=== PATIENT | female | born 1940 | race Caucasian/White ===

== ENCOUNTER → 2018-04-04 10:21 | Outpatient (CLI) | payer MEDICARE, BC, OTHER | END | disposition home or self-care (01) | LOC: D.CT 10:00 | DX: R91.1 Solitary pulmonary nodule (principal) ==

== ENCOUNTER → 2018-07-02 13:38 | Outpatient (CLI) | payer MEDICARE, BC, OTHER | END | disposition home or self-care (01) | LOC: D.LABREF 13:38 | DX: M16.12 Unilateral primary osteoarthritis, left hip (principal); Z11.8 Encounter for screening for other infectious and parasitic diseases ==

== ENCOUNTER 2018-08-01 10:00 | Inpatient (IN) | payer MEDICARE, OTHER ==
[~2018-08-01] VITALS: Ht 157.5 cm; Wt 68.9 kg
[~2018-08-01 10:00] MED LIST: ARMOUR THYROID90 MG PO; LUMIGAN 0.01%2.5 ML EACH EYE
[2018-08-01 11:58] LABS: BASOPHILS 0.5 % (0-2); EOSINOPHILS 1.7 % (0-7); HEMOGLOBIN 15.1 g/dL (12-16); IMMATURE GRANULOCYTES 0.3 % (0-5); LYMPHOCYTES 23.9 % (15-50); MCH 30.7 pg (26.0-34.0); MCHC 33.6 g/dL (31.0-37.0); MCV 91.5 fL (80.0-100.0); MEAN PLATELET VOLUME 10.7 fL (7.4-10.4); MONOCYTES 8.4 % (2-11); NEUTROPHILS 65.2 % (40-80); PLATELET COUNT 254 10x3/uL (130-400); RBC 4.92 10x6/uL (4.00-5.40); RDW 12.8 % (11.5-14.5); WBC 9.5 10x3/uL (4.8-10.8)
[2018-08-01 12:08] LABS: ANION GAP 13.1 mmol/L (8-16); APTT 28.2 SECONDS (22.8-39.4); CALCIUM 9.5 mg/dL (8.5-10.1); CARBON DIOXIDE 29.8 mmol/L (21.0-32.0); CREATININE - SERUM 0.9 mg/dL (0.6-1.3); POTASSIUM - SERUM 3.9 mmol/L (3.5-5.1)
[2018-08-01 12:13] LABS: INR 0.99 (0.85-1.17); PROTIME 12.6 SECONDS (11.6-15.0)
[2018-08-01 14:00] LABS: APPEARANCE HAZY (CLEAR)
[2018-08-01 14:01] LABS: BILIRUBIN NEGATIVE (NEGATIVE); COLOR YELLOW (YELLOW); GLUCOSE NEGATIVE (NEGATIVE); KETONE NEGATIVE (NEGATIVE); NITRITE NEGATIVE (NEGATIVE); PROTEIN NEGATIVE (NEGATIVE); SPECIFIC GRAVITY 1.015 (1.005-1.020); UROBILINOGEN NORMAL (NORMAL)
[2018-08-01 14:02] LABS: BACTERIA FEW /hpf (NONE SEEN); CALCIUM OXALATE CRYSTALS 25-50 /hpf (NONE SEEN); EPITHELIAL CELLS OCC /hpf (0-5); MUCUS <1+ /lpf (NONE SEEN); RED CELLS - URINE OCC /hpf (0-5)
[2018-08-07 13:00] VITALS: BP 139/78
[2018-08-07 21:33] VITALS: BP 127/58
[2018-08-07 23:17] VITALS: BMI 27.8
[2018-08-08 01:47] VITALS: BP 116/69
--- NOTE | 2018-08-08 02:26 | NUR ---
ASSESSMENT PER ADMIT PACKET. DRESSING TO LEFT HIP C/D/I. PPP+. SR UP X2 CALL LIGHT WITHIN REACH.
[2018-08-08 06:00] VITALS: BP 120/62
[2018-08-08 06:17] VITALS: BP 130/79
[2018-08-08 06:32] LABS: HEMATOCRIT 37.8 % (36.0-48.0); HEMOGLOBIN 12.3 g/dL (12-16); MCH 30.1 pg (26.0-34.0); MCHC 32.5 g/dL (31.0-37.0); MCV 92.4 fL (80.0-100.0); MEAN PLATELET VOLUME 10.7 fL (7.4-10.4); RBC 4.09 10x6/uL (4.00-5.40); RDW 13.2 % (11.5-14.5)
--- NOTE | 2018-08-08 08:30 | NUR ---
PT RESTING IN BED. NO S/S OF ACUTE DISTRESS. CL IN PLACE.
[2018-08-08 09:13] VITALS: BP 116/52
[2018-08-08 11:21] LABS: BASOPHILS 0.1 % (0-2); EOSINOPHILS 0.3 % (0-7); HEMATOCRIT 36.9 % (36.0-48.0); IMMATURE GRANULOCYTES 0.3 % (0-5); LYMPHOCYTES 9.5 % (15-50); MCHC 32.5 g/dL (31.0-37.0); MCV 92.3 fL (80.0-100.0); MEAN PLATELET VOLUME 10.8 fL (7.4-10.4); MONOCYTES 10.1 % (2-11); NEUTROPHILS 79.7 % (40-80); PLATELET COUNT 211 10x3/uL (130-400); RDW 13.1 % (11.5-14.5); WBC 14.4 10x3/uL (4.8-10.8)
[2018-08-08 11:41] LABS: ALBUMIN 3.3 g/dL (3.4-5.0); ANION GAP 13.8 mmol/L (8-16); BILIRUBIN - TOTAL 0.55 mg/dL (0.2-1.3); CALCIUM 8.5 mg/dL (8.5-10.1); CARBON DIOXIDE 27.6 mmol/L (21.0-32.0); POTASSIUM - SERUM 4.4 mmol/L (3.5-5.1); PROTEIN - SERUM 5.7 g/dL (6.4-8.2)
[2018-08-08 12:37] VITALS: Ht 157.5 cm; Wt 68.9 kg
--- NOTE | 2018-08-08 16:32 | OP ---
PATIENT NAME: FRANCIS ABREU MEDICAL RECORD: [id number] :44 LOCATION:[id number] ADMISSION DATE:08/07/18 SURGEON: TAB SALAZAR DO DATE OF OPERATION: 08/07/2018 PROCEDURE PERFORMED: Left total hip arthroplasty. PREOPERATIVE DIAGNOSIS: Left hip osteoarthritis. POSTOPERATIVE DIAGNOSIS: Left hip osteoarthritis. INDICATIONS: Ms. Abreu is a 78-year-old female that presented to my office having x-rays of her primary care and noting severe left hip arthritis including cyst in the acetabulum and in the femoral head. She has had pain for quite some time, but did not know what it was from, into the groin and very little movement. She was talked about the risks and benefits of the procedure including infection, bleeding, damage to nerves and vessels, need for further surgery and fracture. She was okay with those risks and decided to undergo total hip. Once the consent was signed, she is also aware of the risk of and blood clots. SURGEON: Tab Salazar DO OPERATIVE PROCEDURE: The patient received a block by anesthesia in the preoperative area, taken to the operative suite, laid in supine position, given general anesthetic. She was intubated and sedated and moved over to the [place] table and positioned. The left hip was prepped and draped in sterile fashion. She was given 80 mg of gentamicin, 2 grams Ancef preoperatively. Incision was then marked out after timeout was performed. Everyone was in agreement with the correct side, site, patient and procedure. Incision then began over the tensor fasciae latae muscle. Careful dissection was made down to the tensor fascia serafin and the fascia was incised and taken anterior to the muscle belly posteriorly and the interval between the rectus was developed. The fascia was removed and the rectus was taken medially and the tensor fascia serafin laterally. The ascending branch of the lateral femoral circumflex was then encountered and tied off and coagulated with the Aquamantys and then cut. The capsule was then exposed. Hohmann was placed around it and a capsulotomy was performed and tagged. The Hohmanns were then placed inside around the neck. The neck was then cut and the head was removed. The trial was then brought in and placed and got nice view of the acetabulum. The labrum was removed and so was the pulvinar. Reaming then began under fluoroscopy down to the teardrop and the position of the cup from 44-48, a 48 fit well and a 48 cup was impacted into the pelvis. Once a 48 was entered in the pelvis, a liner was placed in and the femur was then exposed and a broaching began. At first, the canal finder was put in the Spiralcat cutter and then the broaching began with 4 up to an 8 and 8 was placed in the canal, fit very well, and then trialed a -6 and x-rays were taken. This fit very well. I had good equal length to the other side. This was then taken out and removed and the implant was put in. The dual mobility head was put on and the hip was reduced. X-rays were taken confirming good placement and good lengths. No fracture was seen in the femur. The wound was then thoroughly irrigated and Surgicel beads and vancomycin and tobramycin powder placed into the wound. The capsule was then closed with #1 Ethibond and then the tensor fascia serafin fascia was closed with a #1 Vicryl, first in a [id number], then running locking stitch that layer was then irrigated and the more tobramycin and vancomycin placed on that and 2-0 Vicryl inverted OPERATIVE REPORT [id number] FOSSUM,FRANCIS J interrupted on the skin and 4-0 Monocryl ran on the skin and Prineo glue on the skin for closure. After the glue had dried, a Telfa and Tegaderm was placed on the wound. The patient was awakened and taken to recovery in stable condition. Blood loss was approximately 200 mL. COMPLICATIONS: None. TRANSINT:[id number] Voice Confirmation ID: [id number] DOCUMENT ID: [id number] TAB SALAZAR DO at 1632 CC: [id number] DICTATION DATE: 08/07/18 184 BULK STATION AGENT: 08/07/182225 [facility] IN [place] [id number] [place] [address]
[2018-08-08 17:52] VITALS: BP 131/51
--- NOTE | 2018-08-08 20:00 | NUR ---
ASSISTED UP TO BEDSIDE COMODE TOLERATED WELL USING WALKER, CALL LIGHT IN REACH ICE PACK APPLIED TO LEFT UPPER THIGH INCISION
[2018-08-08 22:24] VITALS: BP 141/58
[2018-08-09 05:00] LABS: BASOPHILS 0.2 % (0-2); EOSINOPHILS 0.4 % (0-7); HEMATOCRIT 34.3 % (36.0-48.0); HEMOGLOBIN 11.4 g/dL (12-16); IMMATURE GRANULOCYTES 0.3 % (0-5); LYMPHOCYTES 9.5 % (15-50); MCH 30.1 pg (26.0-34.0); MCHC 33.2 g/dL (31.0-37.0); MCV 90.5 fL (80.0-100.0); MEAN PLATELET VOLUME 10.8 fL (7.4-10.4); MONOCYTES 10.9 % (2-11); NEUTROPHILS 78.7 % (40-80); PLATELET COUNT 181 10x3/uL (130-400); RBC 3.79 10x6/uL (4.00-5.40); RDW 13.2 % (11.5-14.5); WBC 12.8 10x3/uL (4.8-10.8)
[2018-08-09 05:36] LABS: ALBUMIN 3.1 g/dL (3.4-5.0); BILIRUBIN - TOTAL 0.62 mg/dL (0.2-1.3); CALCIUM 8.5 mg/dL (8.5-10.1); CARBON DIOXIDE 25.8 mmol/L (21.0-32.0); CREATININE - SERUM 0.8 mg/dL (0.6-1.3); PROTEIN - SERUM 6.1 g/dL (6.4-8.2)
[2018-08-09 05:43] LABS: ANION GAP 14.6 mmol/L (8-16); POTASSIUM - SERUM 3.4 mmol/L (3.5-5.1)
[2018-08-09 05:49] VITALS: BP 138/56
[2018-08-09 08:30] VITALS: BP 121/96
[2018-08-09 08:44] VITALS: BP 138/64
--- NOTE | 2018-08-09 09:20 | NUR ---
PT RESTING QUIETLY IN BED. NO ACUTE DISTRESS NOTED. SALINE LOC TO RIGHT FOREARM AND RIGHT FOREARM, SITES WITHOUT REDNESS OR EDEMA, BOTH FLUSH EASILY. DENIES PAIN AT THIS TIME. DRESSING C/D/I TO LEFT HIP. SCD'S ON BILATERALLY. DENIES FURTHER NEEDS AT THIS TIME. CL WITHIN REACH. ENCOURAGED TO CALL WITH NEEDS. CONTINUE POC
[2018-08-09 11:18] LABS: APPEARANCE CLEAR (CLEAR); COLOR YELLOW (YELLOW); GLUCOSE NEGATIVE (NEGATIVE); KETONE SMALL mg/dL (NEGATIVE); NITRITE NEGATIVE (NEGATIVE); PROTEIN NEGATIVE (NEGATIVE); SPECIFIC GRAVITY 1.015 (1.005-1.020)
[2018-08-09 11:19] LABS: BILIRUBIN NEGATIVE (NEGATIVE); UROBILINOGEN NORMAL (NORMAL)
[2018-08-09 11:25] LABS: AMORPHOUS SEDIMENT >1+ /lpf (NONE SEEN); BACTERIA FEW /hpf (NONE SEEN); EPITHELIAL CELLS RARE /hpf (0-5); RED CELLS - URINE RARE /hpf (0-5); WHITE CELLS - URINE RARE /hpf (0-5)
--- NOTE | 2018-08-09 11:30 | NUR ---
PT ASSISTED TO BSC USING WALKER AND PARTIAL ASSIST DUE TO NON WEIGHT BEARING TO LEFT LOWER EXTREMITY. PT HARRY WELL. ASSISTED BACK TO BED, ASSISTING BACK TO BED. CL WITHIN REACH. ENCOURAGED TO CALL WITH FURTHER NEEDS.
[2018-08-09 11:45] VITALS: BP 105/41
--- NOTE | 2018-08-09 13:45 | NUR ---
PT RESTING IN BED WITH EYES CLOSED. NO ACUTE DISTRESS NOTED. CL WITHIN REACH.
--- NOTE | 2018-08-09 14:21 | MORECARE ---
CASE MANAGEMENT DISCHARGE SUMMARY PATIENT: FRANCIS ABREU UNIT: [id number] ADM DATE: 08/07/18 AGE: 78 : 42 SEX: F ROOM/BED: D.2210 AUTHOR: BRENNONDOC PHYSICIAN: REFERRING PHYSICIAN: TAB SALAZAR DO DATE OF SERVICE: 08/09/18 Discharge Plan Patient Name: FRANCIS ABREU Facility: [facility]:[place] : 1940 Planned Disposition: Inpatient Rehab Anticipated Discharge Date: Discharge Date: Expected LOS: Initial Reviewer: [id number] Initial Review Date: 08/07/2018 Generated: 08/09/18 3:21 pm Comments DCP- Discharge Planning Updated by [email or web address]: Nia Carlos on 08/09/18 1:[address] Patient Name: FRANCIS ABREU Admission Status: Urgent Accout number: [id number] Admission Date: 08-07-2018 : 1940 Admission Diagnosis: Attending: TAB SALAZAR Current LOS: 2 Anticipated DC Date: Planned Disposition: Inpatient Rehab Primary Insurance: [employer] MEDICARE PPO or HMO Discharge Planning Comments: CM met with patient to assess discharge planning needs. Patient lives home alone where she is independent with her care. She stated that he son was flying into town today from [place] and will stay a week, but then he will go back to his home. Patient stated that she does not feel like she can go home in the state that she is in and would like to go to our inpatient rehab. She will need preauth. She does not have any DME at home. So at DC she will need a walker and BSC. CM will continue to follow and assist with DC planning Bindery Machine Setter/Set Up Operator: Nia Carlos DCPIA - Discharge Planning Initial Assessment Updated by [email or web address]: Nia Carlos on 08/09/18 2:10 pm * Is the patient Alert and Oriented? Yes * How many steps to enter\exit or inside your home? * PCP JAMES * Pharmacy [facility] [address] * Preadmission Environment Home Alone * ADLs Independent * List name and contact numbers for known caregivers / representatives who currently or will assist patient after discharge: ROSHNI (SON) [phone] * Verbal permission to speak to the caregivers and representatives has been obtained from the patient. N/A * Community resources currently utilized None * Additional services required to return to the preadmission environment? Yes * Can the patient safely return to the preadmission environment? No * Has this patient been hospitalized within the prior 30 days at any hospital? No Patient Name: FRANCIS ABREU Page [phone] at 1421 All edits/amendments must be made on the electronic document DICTATION DATE: 08/09/18 142 POLICE LIEUTENANT PATROL: EVARISTO 08/09/18 1421 RPT#: [id number] DC DATE: STATUS: ADM IN [facility] [address] [place] [address] END OF REPORT
[2018-08-09 16:04] VITALS: BP 135/48
--- NOTE | 2018-08-09 19:45 | NUR ---
PT LYING IN BED, NO SIGNS OF DISTRESS. ALERT AND ORIENTED. IV TO RIGHT FA SL AND LEFT FA SL. ASSISTED PT W/ WALKER UP TO BEDSIDE COMMODE AND BACK TO BED. DRESSING TO LEFT HIP CDI. PLACED ICE PACK ON LEFT HIP. PT STATES PAIN 02/09. GACE NORCO ORDERED. SCDS IN PLACE AND ON TO BOTH LEGS. PT STATES NO OTHER NEEDS OR COMPLAINTS AT THIS TIME. BED LOWEST POSITION, SRX2, CL IN REACH
[2018-08-09 23:16] VITALS: BP 121/96
--- NOTE | 2018-08-10 02:40 | NUR ---
ASSISTED PT UP TO BEDSIDE COMMODE AND BACK TO BED W/ MODERATE ASSIST. PT STATES PAIN IN LEFT HIP AND BACK 5/10. GAVE NORCO ORDERED. PROVIDED PT W/ WATER UPON REQUEST. NO OTHER NEEDS OR COMPLAINTS AT THIS TIME. SCDS ON. CL IN REACH, WILL CONTINUE TO MONITOR
[2018-08-10 03:38] VITALS: BP 100/67; BP 137/73
[2018-08-10 06:19] LABS: BASOPHILS 0.2 % (0-2); EOSINOPHILS 1.2 % (0-7); HEMATOCRIT 33.4 % (36.0-48.0); HEMOGLOBIN 10.9 g/dL (12-16); IMMATURE GRANULOCYTES 0.3 % (0-5); LYMPHOCYTES 10.8 % (15-50); MCH 29.9 pg (26.0-34.0); MCHC 32.6 g/dL (31.0-37.0); MCV 91.8 fL (80.0-100.0); MEAN PLATELET VOLUME 10.8 fL (7.4-10.4); MONOCYTES 11.2 % (2-11); NEUTROPHILS 76.3 % (40-80); PLATELET COUNT 198 10x3/uL (130-400); RBC 3.64 10x6/uL (4.00-5.40); RDW 13.2 % (11.5-14.5); WBC 13.1 10x3/uL (4.8-10.8)
[2018-08-10 06:47] LABS: ALBUMIN 2.8 g/dL (3.4-5.0); ANION GAP 11.5 mmol/L (8-16); BILIRUBIN - TOTAL 0.56 mg/dL (0.2-1.3); CALCIUM 8.5 mg/dL (8.5-10.1); CARBON DIOXIDE 28.4 mmol/L (21.0-32.0); CREATININE - SERUM 0.8 mg/dL (0.6-1.3); POTASSIUM - SERUM 3.9 mmol/L (3.5-5.1); PROTEIN - SERUM 5.5 g/dL (6.4-8.2)
--- NOTE | 2018-08-10 07:15 | NUR ---
PT RESTING IN BED. REPORTS PAIN 8/10 AT THIS TIME. TO ADMINISTER PAIN MEDS PRESCRIBED. SALINE LOCS TO LEFT AND RIGHT FOREARMS, SITES WITHOUT REDNESS OR EDEMA. DRESSING C/D/I TO LEFT HIP. DENIES FUTHER NEEDS AT THIS TIME. CL WITHIN REACH. ENCOURAGED TO CALL WITH NEEDS. CONTINUE POC
[2018-08-10 08:34] VITALS: BP 100/61
[2018-08-10 11:40] VITALS: BP 112/55
--- NOTE | 2018-08-10 12:12 | NUR ---
NUTRITION F/U PT TOLERATING REG GLUTEN FREE DIET, 100% INTAKE BREAKFAST. WILL CONTINUE TO PROVIDE DIET, HONOR FOOD PREFERENCES. RD FOLLOWING
--- NOTE | 2018-08-10 12:45 | NUR ---
Rehab Note- Acute Inpatient Prescreen order received. The patient has [employer] insurance and will require a PreAuth. Benefits were verified with Pradeep with [employer] and PreAuth was stared with Roya with [employer], Ref #[id number]. Will await to be contacted for clinical information. WIll follow at this time. Thank you for this referral! Keyana Seo RN Clinical Liaison, [facility] Rehab
[2018-08-10 16:00] VITALS: BP 106/58
--- NOTE | 2018-08-10 16:45 | NUR ---
REHAB NOTE- RECEIVED A FA REQUESTING CLINICALS TO BE FAXD- FAXED AT THIS TIME TO ISAURA WITH [employer]. WILL FOLLOW A THIS TIME. THANK YOU FOR THIS REFERRAL! IGNACIA HASSAN RN CLINICAL LIAISON, [facility] RE[facility]
[2018-08-10 19:34] VITALS: BP 106/49
--- NOTE | 2018-08-10 20:57 | NUR ---
PT VOIDED ON BEDSIDE COMMODE WITH MODERATE ASSIST AND WALKER. GAVE SCHEDULED MEDS. GAVE NORCO-10 FOR PAIN 02/09. COMPLETE ASSESSMENT PER FLOW-SHEET. NO OTHER NEEDS. WILL CONTINUE TO MONITOR.
[2018-08-10 23:35] VITALS: BP 113/56
[2018-08-11 04:00] VITALS: BP 125/59
[2018-08-11 06:12] LABS: BASOPHILS 0.3 % (0-2); HEMATOCRIT 33.1 % (36.0-48.0); HEMOGLOBIN 10.9 g/dL (12-16); IMMATURE GRANULOCYTES 0.4 % (0-5); LYMPHOCYTES 12.5 % (15-50); MCHC 32.9 g/dL (31.0-37.0); MCV 91.2 fL (80.0-100.0); MEAN PLATELET VOLUME 10.4 fL (7.4-10.4); MONOCYTES 11.4 % (2-11); NEUTROPHILS 73.4 % (40-80); PLATELET COUNT 211 10x3/uL (130-400); RBC 3.63 10x6/uL (4.00-5.40); RDW 13.1 % (11.5-14.5); WBC 11.4 10x3/uL (4.8-10.8)
[2018-08-11 06:42] LABS: ALBUMIN 2.5 g/dL (3.4-5.0); ALKALINE PHOSPHATASE 67 U/L (46-116); ALT (SGPT) 24 U/L (10-68); BILIRUBIN - TOTAL 0.34 mg/dL (0.2-1.3); CALC OSMOLALITY 278 mosm/kg (275-300); CALCIUM 8.7 mg/dL (8.5-10.1); CARBON DIOXIDE 26.4 mmol/L (21.0-32.0); CHLORIDE - SERUM 102 mmol/L (98-107); CREATININE - SERUM 0.7 mg/dL (0.6-1.3); GLUCOSE 137 mg/dL (74-106); POTASSIUM - SERUM 3.6 mmol/L (3.5-5.1); SODIUM 139 mmol/L (136-145); UREA NITROGEN 11 mg/dL (7-18); eGFR NON AFRICAN AMERICAN 86 mL/min (90-120)
[2018-08-11 08:39] VITALS: BP 137/61
--- NOTE | 2018-08-11 10:26 | NUR ---
IV DCD DUE TO UNABLE TO FLUSH, PATIENT REQUEST NOT TO HAVE IV RESTARTED DUE TO GOING TO REHAB
[2018-08-11 12:00] VITALS: BP 111/69
[2018-08-11 16:00] VITALS: BP 134/46
--- NOTE | 2018-08-11 18:44 | NUR ---
PATIENT RESTING WITH NO NEEDS VOICED, CL IN REACH
[2018-08-11 20:00] VITALS: BP 112/52
--- NOTE | 2018-08-11 20:15 | NUR ---
PT C/O LEFT HIP PAIN 02/09. GAVE NORCO-10 PO AND APPLIED ICE. GAVE SCHEDULED MEDS. COMPLETE ASSESSMENT PER FLOW-SHEET. PT'S SON AT BEDSIDE. NO OTHER NEEDS. WILL CONTINUE TO MONITOR.
[2018-08-12] VITALS: BP 129/62
[2018-08-12 04:00] VITALS: BP 135/67
[2018-08-12 05:55] LABS: BASOPHILS 0.3 % (0-2); EOSINOPHILS 3.4 % (0-7); HEMOGLOBIN 10.6 g/dL (12-16); IMMATURE GRANULOCYTES 0.5 % (0-5); LYMPHOCYTES 18.1 % (15-50); MCH 29.4 pg (26.0-34.0); MCHC 32.1 g/dL (31.0-37.0); MCV 91.4 fL (80.0-100.0); MEAN PLATELET VOLUME 10.1 fL (7.4-10.4); MONOCYTES 12.9 % (2-11); NEUTROPHILS 64.8 % (40-80); RBC 3.61 10x6/uL (4.00-5.40); RDW 13.1 % (11.5-14.5); WBC 8.9 10x3/uL (4.8-10.8)
[2018-08-12 06:05] LABS: PLATELET COUNT 268 10x3/uL (130-400)
[2018-08-12 06:35] LABS: ALBUMIN 2.3 g/dL (3.4-5.0); ANION GAP 13.4 mmol/L (8-16); BILIRUBIN - TOTAL 0.37 mg/dL (0.2-1.3); CALCIUM 8.6 mg/dL (8.5-10.1); CARBON DIOXIDE 29.2 mmol/L (21.0-32.0); CREATININE - SERUM 0.8 mg/dL (0.6-1.3); POTASSIUM - SERUM 3.6 mmol/L (3.5-5.1)
--- NOTE | 2018-08-12 07:30 | NUR ---
PATIENT POST OP DAY 5 FOLLOWING LEFT HIP REPLACEMENT. DRESSING C/D/I, PATIENT REPORT, EXPLAINED TO PATIENT THAT IT IS TOO SOON TO GIVE PAIN MEDICAIONS AND SHE VOICED UNDERSTANDING STATING PAIN IS TOLERABLE AT THIS TIME. SCD'S INTACT. IV RIGHT HAND WITH NS @5 TKO. CL IN REACH
[2018-08-12 07:55] VITALS: BP 142/54
--- NOTE | 2018-08-12 11:37 | NUR ---
PATIENT RESTING IN BED VISITING WITH SON, NO NEEDS VOICED. CL IN REACH
[2018-08-12 13:00] VITALS: BP 122/68
--- NOTE | 2018-08-12 14:05 | NUR ---
ISLAND DRESSING CHANGED TO LEFT HIP, SURGICAL INCISION WITH NO SIGNS OR SYMPTOMS OF INFECTION
[2018-08-12 16:00] VITALS: BP 133/67
--- NOTE | 2018-08-12 16:12 | NUR ---
MEDIUM BM WITH LOOSE AND FORMED STOOL FOLLOWING FLEETS ENEMA
[2018-08-12 20:00] VITALS: BP 120/61
--- NOTE | 2018-08-12 21:30 | NUR ---
PT ALERT & ORIENTED, SITTING UP IN BED WATCHING TV. GAVE SCHEDULED MEDS. ASSISTED PT UP TO BEDSIDE COMMODE WITH WALKER TO VOID. NO OTHER NEEDS. ASSESSMENT COMPLETE PER FLOW-SHEET. WILL CONTINUE TO MONITOR.
[2018-08-13] VITALS: BP 116/65
[2018-08-13 04:00] VITALS: BP 112/57
[2018-08-13 04:08] LABS: BASOPHILS 0.6 % (0-2); EOSINOPHILS 3.9 % (0-7); HEMATOCRIT 31.4 % (36.0-48.0); HEMOGLOBIN 10.2 g/dL (12-16); IMMATURE GRANULOCYTES 0.8 % (0-5); LYMPHOCYTES 19.7 % (15-50); MCH 29.5 pg (26.0-34.0); MCHC 32.5 g/dL (31.0-37.0); MCV 90.8 fL (80.0-100.0); MEAN PLATELET VOLUME 9.5 fL (7.4-10.4); MONOCYTES 11.5 % (2-11); NEUTROPHILS 63.5 % (40-80); PLATELET COUNT 282 10x3/uL (130-400); RBC 3.46 10x6/uL (4.00-5.40); WBC 8.7 10x3/uL (4.8-10.8)
[2018-08-13 04:39] LABS: ALBUMIN 2.4 g/dL (3.4-5.0); ANION GAP 14.4 mmol/L (8-16); BILIRUBIN - TOTAL 0.38 mg/dL (0.2-1.3); CALCIUM 8.8 mg/dL (8.5-10.1); CARBON DIOXIDE 27.5 mmol/L (21.0-32.0); CREATININE - SERUM 0.9 mg/dL (0.6-1.3); POTASSIUM - SERUM 3.9 mmol/L (3.5-5.1); PROTEIN - SERUM 6.1 g/dL (6.4-8.2)
[2018-08-13] MEDS ORDERED: ELIQUIS2.5 MG PO (07:26)
[2018-08-13] MEDS ORDERED: HYDROCODON-ACE1 EAC7 PO (07:26)
[2018-08-13] MEDS ORDERED: KEFLEX500 MG PO (07:27)
[2018-08-13 08:04] VITALS: BP 146/59
--- NOTE | 2018-08-13 10:01 | NUR ---
Rehab Note- Called & left voicemail for Fanta Clinical Review nurse with [employer]. WIll await determination for acute inpatiemt rehab stay. Keyana Seo RN Clinical Liaison, [facility] Rehab
[2018-08-13 11:55] VITALS: BP 140/64
--- NOTE | 2018-08-13 13:58 | NUR ---
Rehab Note- Voicemail left again for Fanta with [employer] for pending Auth. COntinue to follow at this time. Keyana Seo RN Clinical Liaison, [facility] Rehab
--- NOTE | 2018-08-13 15:35 | NUR ---
Rehab Note- Just spoke with Fanta from [facility] requesting more therapy information prior to being sent to their medical device sales for review. Spoke w/ Yuri with therapy to see if a MINER will be seeing the patient this evening to get an updated note at this time. WIll continue to follow and will fax requested information when available. Spoke with VINCE Hsu to inform her. Thank you for this referral! Keyana Seo RN Clinical Liaison, [facility] Rehab
[2018-08-13 15:45] VITALS: BP 147/64
--- NOTE | 2018-08-13 16:50 | NUR ---
OT NOTE: PT COMPLETED BED MOB FOR SUPINE TO SIT WITH MOD/MAX A. PT COMPLETED BED TO BSC TRANSFER WITH CGA AND RW. PT COMPLETED TOILET HYGIENE WITH SET UP. PT IS FEARFUL AND REQUIRED V/CS FOR TASK PROGRESSION. THANK YOU, KRISTOFER LOPEZ
[2018-08-13 20:00] VITALS: BP 123/54
--- NOTE | 2018-08-13 21:15 | NUR ---
ENTERED ROOM IN RESPONSE TO CALL LIGHT. PT ON BEDSIDE COMMODE, STANDBY ASSIST WHILE PT USES WALKER TO SIT BACK ON BED. HELPED RAISE LEGS ONTO BED. PT DENIES FURTHER NEEDS. WILL CONTINUE TO MONITOR.
--- NOTE | 2018-08-14 03:56 | NUR ---
RESTING QUITELY IN BED NO APPARENT DISTRESS, CALL LIGHT IN REACH
[2018-08-14 04:00] VITALS: BP 134/110
--- NOTE | 2018-08-14 07:00 | NUR ---
PT ASSISTED FROM BED TO BSC AND BACK TO BED. HARRY WELL. NO ACUTE DISTRESS NOTED. DRESSING C/D/I TO LEFT HIP. DENIES FURTHER NEEDS AT THIS TIME. CL WITHIN REACH. ENCOURAGED TO CALL WITH NEEDS. CONTINUE POC
--- NOTE | 2018-08-14 09:00 | NUR ---
ASSISTED PT TO BSC AND BACK TO BED WITH MINIMAL ASSIST WITH WALKER. PT HARRY WELL. DENIES FURTHER NEEDS AT THIS TIME. CL WITHIN REACH.
[2018-08-14 09:15] VITALS: BP 124/56
--- NOTE | 2018-08-14 11:00 | NUR ---
PT ASSISTED FROM BED TO BSC AND BACK TO BED. HARRY WELL. NO ACUTE DISTRESS NOTED. DENIES FURTHER NEEDS. CL WITHIN REACH. CONTINUE TO MONITOR.
--- NOTE | 2018-08-14 13:10 | NUR ---
PT RESTING QUIETLY IN BED. NO ACUTE DISTRESS NOTED. DENIES NEEDS AT THIS TIME. CL WITHIN REACH. ENCOURAGED TO CALL WITH NEEDS. WILL CONTINUE TO MONITOR.
[2018-08-14 13:37] VITALS: BP 129/50
--- NOTE | 2018-08-14 14:34 | NUR ---
Rehab Note- Received call from Pradeep Zavala with [facility]- [facility]. Rubi Mccabe denied the patient an inpatient acute rehab stay but will apporve a SNF stay. A peer to peer can be set up by calling [phone] by 1300 on Mon08/15/18, case ref #[id number]. Spoke with VINCE Pratt. Thank you for this referral! Keyana Seo RN CLinical Liaison, [facility] Rehab
--- NOTE | 2018-08-14 15:11 | MORECARE ---
CASE MANAGEMENT DISCHARGE SUMMARY PATIENT: FRANCIS ABREU UNIT: [id number] ADM DATE: 08/07/18 AGE: 78 : 42 SEX: F ROOM/BED: D.2210 AUTHOR: BRENNON,DOC PHYSICIAN: REFERRING PHYSICIAN: TAB SALAZAR DO DATE OF SERVICE: 08/14/18 Discharge Plan Patient Name: FRANCIS ABREU Facility: [facility]:[place] : 1940 Planned Disposition: Inpatient Rehab Anticipated Discharge Date: Discharge Date: Expected LOS: Initial Reviewer: [email or web address] Initial Review Date: 08/07/2018 Generated: 08/14/18 4:11 pm Comments DCP- Discharge Planning Updated by [id number]: Nia Carlos on 08/14/18 2:[address] RECEIVED A CALL FROM INPATIENT REHAB STATED THAT [facility] DENIED. I SPOKE WITH PATIENT AT LENGTH, EXPLAINED SKILLED OBI SIGNED FOR [facility] (1) AND [facility] (2). IMM EXPLAINED AND GIVEN. REFERRAL SENT TO [facility] SPOKE WITH ADAN. CM TO FOLLOW AND ASSIST WITH DC PLANNING DCP- Discharge Planning Updated by [email or web address]: Nia Carlos on 08/09/18 1:[address] Patient Name: FRANCIS ABREU Admission Status: Urgent Accout number: [id number] Admission Date: 08-07-2018 : 1940 Admission Diagnosis: Attending: TAB SALAZAR Current LOS: 2 Anticipated DC Date: Planned Disposition: Inpatient Rehab Primary Insurance: [employer] MEDICARE PPO or HMO Discharge Planning Comments: CM met with patient to assess discharge planning needs. Patient lives home alone where she is independent with her care. She stated that he son was flying into town today from [place] and will stay a week, but then he will go back to his home. Patient stated that she does not feel like she can go home in the state that she is in and would like to go to our inpatient rehab. She will need preauth. She does not have any DME at home. So at DC she will need a walker and BSC. CM will continue to follow and assist with DC planning Residential Service Technician: Nia Carlos DCPIA - Discharge Planning Initial Assessment Updated by [id number]: Nia Carlos on 08/09/18 2:10 pm * Is the patient Alert and Oriented? Yes * How many steps to enter\exit or inside your home? * PCP JAMES * Pharmacy [facility] [address] * Preadmission Environment Home Alone * ADLs Independent * List name and contact numbers for known caregivers / representatives who currently or will assist patient after discharge: ROSHNI (SON) [phone] * Verbal permission to speak to the caregivers and representatives has been obtained from the patient. N/A * Community resources currently utilized None * Additional services required to return to the preadmission environment? Yes * Can the patient safely return to the preadmission environment? No * Has this patient been hospitalized within the prior 30 days at any hospital? No External Providers External Provider: [facility] Next Contact Date: Service Request Date: Service Type: Resolution: Reviewer: Comments: Coverage Notice Reviewer: [email or web address] - Nia Carlos Notice Issued Date-Time: 08/14/2018 14:51 Notice Type: IM Discharge Notice Notice Delivered To: Patient Relationship to Patient: Cashier Associate Name: Delivery Method: HAND - Hand Delivered Carrie Days: Prior Verbal Notification: Recipient Understood Notice: Yes Recipient Signature: Yes Med Rec Note Co-signed by Attending: Coverage Notice Comment: Last DP export: 08/09/18 1:21 pm Patient Name: FRANCIS ABREU Page [id number] at 1511 All edits/amendments must be made on the electronic document DICTATION DATE: 08/14/181509 FORGE OPERATOR: EVARISTO 08/14/18 151 RPT#: [id number] DC DATE: STATUS: ADM IN [facility] [address] [place] [address] END OF REPORT
[2018-08-14 20:00] VITALS: BP 142/67
--- NOTE | 2018-08-14 21:35 | NUR ---
SUPINE IN BED, SON AT BEDSIDE. PT IS ALERT AND ORIENTED, BUT FREQUENTLY GETS DISTRACTED/SIDE-TRACKED AND JUMPS TO OTHER SUBJECTS DURING CONVERSATIONS OR WHILE EXPLAINING/TELLING A STORY. PT DID STATE THE TIME FOR HER NEXT PAIN PILL WAS WRITTEN ON THE BOARD BECAUSE SHE DOES NOT KNOW WHEN TO ASK. INFORMED PT WHEN PAIN MEDICATION IS WEARING OFF AND PAIN BEGINS INCREASING AGAIN, THAT IS WHEN TO ASK. REGARDLESS OF HOW SOON OR LATE IN REGARDS TO TIMING AND THIS WILL HELP TO BE SURE PAIN CAN BE ADEQUATELY CONTROLLED- IF NOT, IT MAY NEED REVIEW BY DR. PT VERBALIZED UNDERSTANDING AND STATED SHE WOULD LET ME KNOW WHEN SHE WAS IN PAIN.
--- NOTE | 2018-08-14 23:15 | NUR ---
PT LYING IN BED, NO SIGNS OF DISTRESS. ALERT AND ORIENTED. AGREE W/ AEMT ASSESSMENT. DENIES NEEDS. CL IN REACH
[2018-08-15] VITALS: BP 120/52
[2018-08-15 04:00] VITALS: BP 117/75
--- NOTE | 2018-08-15 09:10 | MORECARE ---
CASE MANAGEMENT DISCHARGE SUMMARY PATIENT: FRANCIS ABREU UNIT: [id number] ADM DATE: 08/07/18 AGE: 78 : 42 SEX: F ROOM/BED: D.2210 AUTHOR: BRENNON,DOC PHYSICIAN: REFERRING PHYSICIAN: TAB SALAZAR DO DATE OF SERVICE: 08/15/18 Discharge Plan Patient Name: FRANCIS ABREU Facility: [facility]:[place] : 1940 Planned Disposition: Inpatient Rehab Anticipated Discharge Date: Discharge Date: Expected LOS: Initial Reviewer: [email or web address] Initial Review Date: 08/07/2018 Generated: 08/15/18 10:10 am Comments DCP- Discharge Planning Updated by [email or web address]: Nia Carlos on 08/15/18 8:[address] SPOKE WITH ADAN AT [facility], [facility] ON [facility] DCP- Discharge Planning Updated by [email or web address]: Nia Carlos on 08/14/18 2:[address] RECEIVED A CALL FROM INPATIENT REHAB STATED THAT [facility] DENIED. I SPOKE WITH PATIENT AT LENGTH, EXPLAINED SKILLED OBI SIGNED FOR [facility] (1) AND [facility] (2). IMM EXPLAINED AND GIVEN. REFERRAL SENT TO [facility] SPOKE WITH ADAN. CM TO FOLLOW AND ASSIST WITH DC PLANNING DCP- Discharge Planning Updated by [email or web address]: Nia Carlos on 08/09/18 1:[address] Patient Name: FRANCIS ABREU Admission Status: Urgent Accout number: [id number] Admission Date: 08-07-2018 : 1940 Admission Diagnosis: Attending: TAB SALAZAR Current LOS: 2 Anticipated DC Date: Planned Disposition: Inpatient Rehab Primary Insurance: [employer] MEDICARE PPO or HMO Discharge Planning Comments: CM met with patient to assess discharge planning needs. Patient lives home alone where she is independent with her care. She stated that he son was flying into town today from [place] and will stay a week, but then he will go back to his home. Patient stated that she does not feel like she can go home in the state that she is in and would like to go to our inpatient rehab. She will need preauth. She does not have any DME at home. So at DC she will need a walker and BSC. CM will continue to follow and assist with DC planning Cement Sack Breaker: Nia Carlos DCPIA - Discharge Planning Initial Assessment Updated by [email or web address]: Nia Carlos on 08/09/18 2:10 pm * Is the patient Alert and Oriented? Yes * How many steps to enter\exit or inside your home? * PCP JAMES * Pharmacy [facility] [address] * Preadmission Environment Home Alone * ADLs Independent * List name and contact numbers for known caregivers / representatives who currently or will assist patient after discharge: ROSHNI (SON) [phone] * Verbal permission to speak to the caregivers and representatives has been obtained from the patient. N/A * Community resources currently utilized None * Additional services required to return to the preadmission environment? Yes * Can the patient safely return to the preadmission environment? No * Has this patient been hospitalized within the prior 30 days at any hospital? No Coverage Notice Reviewer: [id number] - Nia Carlos Notice Issued Date-Time: 08/14/2018 14:51 Notice Type: IM Discharge Notice Notice Delivered To: Patient Relationship to Patient: Elevator Installer Name: Delivery Method: HAND - Hand Delivered Carrie Days: Prior Verbal Notification: Recipient Understood Notice: Yes Recipient Signature: Yes Med Rec Note Co-signed by Attending: Coverage Notice Comment: Last DP export: 08/14/18 2:11 p Patient Name: FRANCIS ABREU Page [id number] at 0910 All edits/amendments must be made on the electronic document DICTATION DATE: 08/15/18908 FACE BOSS: EVARISTO 08/15/18908 RPT#: [id number] DC DATE: STATUS: ADM IN [facility] [address] [place] [address] END OF REPORT
--- NOTE | 2018-08-15 10:21 | NUR ---
NUTRITION F/U PT SLEEPING. 50% INTAKE BREAKFAST THIS AM. WILL CONTINUE TO PROVIDE DIET, HONOR FOOD PREFERENCES. RD FOLLOWING
[2018-08-15 10:25] VITALS: BP 119/65
--- NOTE | 2018-08-15 11:49 | NUR ---
OT NOTE: PT PERFORMED VERY WELL TODAY; MIN ASSIST WITH BED MOB INCLUDING ROLLING AND SUPINE TO SIT. TOLERATED SITTING UP ON EDGE OF BED X 10-12 MIN FOR EXS; MAX ASSIST TO TRANG SHOES; TRANSFERRED TO TOILET WITH WALKER AND MIN ASSIST; TOILET HYGIENE WITH SET UP; DONNING AND DOFFING GOWN AND ROBE WITH MIN ASSIST; AMB APPROX 85 FT WITH RW TO IMPROVE UE STRENGTH AND FUNCTIONAL ENDURANCE. SINK HYGIENE WITH USE OF WALKER AND CGA; BACK TO BED WITH MOD ASSIST..PT VERY FATIGUED AT THIS TIME. EDUCATION ON SCOOTING UP IN BED WITHOUT ASSIST, HOWEVER, DUE TO FATIGUE, PT WAS UNABLE TO PERFORM WITHOUT ASSIST. SUDHEER ROMAN, OTR/L
--- NOTE | 2018-08-15 15:13 | MORECARE ---
CASE MANAGEMENT DISCHARGE SUMMARY PATIENT: FRANCIS ABREU UNIT: [id number] ADM DATE: 08/07/18 AGE: 78 : 42 SEX: F ROOM/BED: D.2210 AUTHOR: BRENNON,DOC PHYSICIAN: REFERRING PHYSICIAN: TAB SALAZAR DO DATE OF SERVICE: 08/15/18 Discharge Plan Patient Name: FRANCIS ABREU Facility: [facility]:[place] : 1940 Planned Disposition: Inpatient Rehab Anticipated Discharge Date: Discharge Date: Expected LOS: Initial Reviewer: [email or web address] Initial Review Date: 08/07/2018 Generated: 08/15/18 4:12 pm Comments DCP- Discharge Planning Updated by [email or web address]: Nia Carlos on 08/15/18 2:[address] SPOKE WITH KEN FROM [facility] ([phone]) HE GAVE [place] APPROVAL NUMBER [id number] CALLED ADAN WITH [facility], AWAITING RADIOLOGY RESIDENT TIME DCP- Discharge Planning Updated by [email or web address]: Nia Carlos on 08/15/18 8:[address] SPOKE WITH ADAN AT [facility], WAITING ON AUTH DCP- Discharge Planning Updated by [email or web address]: Nia Carlos on 08/14/18 2:[address] RECEIVED A CALL FROM INPATIENT REHAB STATED THAT EWAS DENIED. I SPOKE WITH PATIENT AT LENGTH, EXPLAINED SKILLED OBI SIGNED FOR [facility] (1) AND [facility] (2). IMM EXPLAINED AND GIVEN. REFERRAL SENT TO [facility] SPOKE WITH ADAN. CM TO FOLLOW AND ASSIST WITH DC PLANNING DCP- Discharge Planning Updated by [email or web address]: Nia Carlos on 08/09/18 1:[address] Patient Name: FRANCIS ABREU Admission Status: Urgent Accout number: [id number] Admission Date: 08-07-2018 : 1940 Admission Diagnosis: Attending: TAB SALAZAR Current LOS: 2 Anticipated DC Date: Planned Disposition: Inpatient Rehab Primary Insurance: [employer] MEDICARE PPO or HMO Discharge Planning Comments: CM met with patient to assess discharge planning needs. Patient lives home alone where she is independent with her care. She stated that he son was flying into town today from [place] and will stay a week, but then he will go back to his home. Patient stated that she does not feel like she can go home in the state that she is in and would like to go to our inpatient rehab. She will need preauth. She does not have any DME at home. So at DC she will need a walker and BSC. CM will continue to follow and assist with DC planning Projection Printer: Nia Carlos DCPIA - Discharge Planning Initial Assessment Updated by [email or web address]: Nia Carlos on 08/09/18 2:10 pm * Is the patient Alert and Oriented? Yes * How many steps to enter\exit or inside your home? * PCP JAMES * Pharmacy [facility] [address] * Preadmission Environment Home Alone * ADLs Independent * List name and contact numbers for known caregivers / representatives who currently or will assist patient after discharge: ROSHNI (SON) [phone] * Verbal permission to speak to the caregivers and representatives has been obtained from the patient. N/A * Community resources currently utilized None * Additional services required to return to the preadmission environment? Yes * Can the patient safely return to the preadmission environment? No * Has this patient been hospitalized within the prior 30 days at any hospital? No Coverage Notice Reviewer: [id number] - Nia Carlos Notice Issued Date-Time: 08/14/2018 14:51 Notice Type: IM Discharge Notice Notice Delivered To: Patient Relationship to Patient: Web Publisher Name: Delivery Method: HAND - Hand Delivered Carrie Days: Prior Verbal Notification: Recipient Understood Notice: Yes Recipient Signature: Yes Med Rec Note Co-signed by Attending: Coverage Notice Comment: Last DP export: 08/15/18 8:10 a Patient Name: FRANCIS ABREU Page [id number] at 1513 All edits/amendments must be made on the electronic document DICTATION DATE: 08/15/181511 INSULATION ENGINEMAN: EVARISTO 08/15/181511 RPT#: [id number] DC DATE: STATUS: ADM IN [facility] [address] [place] [address] END OF REPORT
--- NOTE | 2018-08-15 15:55 | MORECARE ---
CASE MANAGEMENT DISCHARGE SUMMARY PATIENT: FRANCIS ABREU UNIT: [id number] ADM DATE: 08/07/18 AGE: 78 : 42 SEX: F ROOM/BED: D.2210 AUTHOR: SOCORRO WILLETT PHYSICIAN: REFERRING PHYSICIAN: TAB SALAZAR DO DATE OF SERVICE: 08/15/18 Discharge Plan Patient Name: FRANCIS ABREU Facility: [facility]:[place] : 1940 Planned Disposition: Inpatient Rehab Anticipated Discharge Date: Discharge Date: Expected LOS: Initial Reviewer: [email or web address] Initial Review Date: 08/07/2018 Generated: 08/15/18 4:54 pm Comments DCP- Discharge Planning Updated by [email or web address]: Nia Carlos on 08/15/18 2:[address] PATIENT WILL BE DISCHARGING TO A SKILLED BED DCP- Discharge Planning Updated by [email or web address]: Nia Carlos on 08/15/18 2:[address] SPOKE WITH KEN RIGGS [facility] ([phone]) HE GAVE ME APPROVAL NUMBER [id number] CALLED ADAN WITH [facility], AWAITING FLIGHT TEACHER TIME DCP- Discharge Planning Updated by [email or web address]: Nia Carlos on 08/15/18 8:[address] SPOKE WITH ADAN AT [facility], WAITING ON AUTH DCP- Discharge Planning Updated by [email or web address]: Nia Carlos on 08/14/18 2:[address] RECEIVED A CALL FROM INPATIENT REHAB STATED THAT [facility]AS DENIED. I SPOKE WITH PATIENT AT LENGTH, EXPLAINED SKILLED OBI SIGNED FOR [facility] (1) AND [facility] (2). IMM EXPLAINED AND GIVEN. REFERRAL SENT TO [facility] SPOKE WITH ADAN. CM TO FOLLOW AND ASSIST WITH DC PLANNING DCP- Discharge Planning Updated by [email or web address]: Nia Carlos on 08/09/18 1:[address] Patient Name: FRANCIS ABREU Admission Status: Urgent Accout number: [id number] Admission Date: 08-07-2018 : 1940 Admission Diagnosis: Attending: TAB SALAZAR Current LOS: 2 Anticipated DC Date: Planned Disposition: Inpatient Rehab Primary Insurance: [employer] MEDICARE PPO or HMO Discharge Planning Comments: CM met with patient to assess discharge planning needs. Patient lives home alone where she is independent with her care. She stated that he son was flying into town today from [place] and will stay a week, but then he will go back to his home. Patient stated that she does not feel like she can go home in the state that she is in and would like to go to our inpatient rehab. She will need preauth. She does not have any DME at home. So at DC she will need a walker and BSC. CM will continue to follow and assist with DC planning Pet Nutrition Specialist: Nia Carlos DCPIA - Discharge Planning Initial Assessment Updated by [email or web address]: Nia Carlos on 08/09/18 2:10 pm * Is the patient Alert and Oriented? Yes * How many steps to enter\exit or inside your home? * PCP JAMES * Pharmacy [facility] [address] * Preadmission Environment Home Alone * ADLs Independent * List name and contact numbers for known caregivers / representatives who currently or will assist patient after discharge: ROSHNI (SON) [phone] * Verbal permission to speak to the caregivers and representatives has been obtained from the patient. N/A * Community resources currently utilized None * Additional services required to return to the preadmission environment? Yes * Can the patient safely return to the preadmission environment? No * Has this patient been hospitalized within the prior 30 days at any hospital? No Coverage Notice Reviewer: [id number] - iNa Carlos Notice Issued Date-Time: 08/14/2018 14:51 Notice Type: IM Discharge Notice Notice Delivered To: Patient Relationship to Patient: Principal Java Developer Name: Delivery Method: HAND - Hand Delivered Carrie Days: Prior Verbal Notification: Recipient Understood Notice: Yes Recipient Signature: Yes Med Rec Note Co-signed by Attending: Coverage Notice Comment: Last DP export: 08/15/18 2:13 p Patient Name: FRANCIS ABREU Page [id number] at 1555 All edits/amendments must be made on the electronic document DICTATION DATE: 08/15/181553 SOCIAL AND HUMAN SERVICES ASSISTANT: EVARISTO 08/15/181553 RPT#: [id number] DC DATE: STATUS: ADM IN [facility] [address] [place] [address] END OF REPORT
[2018-08-15 16:40] VITALS: BP 138/73
--- NOTE | 2018-08-17 14:46 | MORECARE ---
CASE MANAGEMENT DISCHARGE SUMMARY PATIENT: FRANCIS ABREU UNIT: [id number] ADM DATE: 08/07/18 AGE: 78 : 42 SEX: F ROOM/BED: D.2210 AUTHOR: BRENNON,DOC PHYSICIAN: REFERRING PHYSICIAN: TAB SALAZAR DO DATE OF SERVICE: 08/17/18 Discharge Plan Patient Name: FRANCIS ABREU Facility: [facility]:[place] : 1940 Planned Disposition: Inpatient Rehab Anticipated Discharge Date: Discharge Date: 08/15/2018 Expected LOS: 0 Initial Reviewer: [email or web address] Initial Review Date: 08/07/2018 Generated: 08/17/18 3:46 pm Comments DCP- Discharge Planning Updated by [email or web address]: Nia Carlos on 08/15/18 2:[address] PATIENT WILL BE DISCHARGING TO A SKILLED BED DCP- Discharge Planning Updated by [email or web address]: Nia Carlos on 08/15/18 2:[address] SPOKE WITH KEN FROM [facility] ([phone]) HE GAVE [place] APPROVAL NUMBER [id number] CALLED ADAN WITH [facility], AWAITING RETAIL SOLAR ADVISOR TIME DCP- Discharge Planning Updated by [email or web address]: Nia Carlos on 08/15/18 8:[address] SPOKE WITH ADAN AT [facility], WAITING ON AUTH DCP- Discharge Planning Updated by [email or web address]: Nia Carlos on 08/14/18 2:[address] RECEIVED A CALL FROM INPATIENT REHAB STATED THAT [facility]AS DENIED. I SPOKE WITH PATIENT AT LENGTH, EXPLAINED SKILLED OBI SIGNED FOR [facility] (1) AND [facility] (2). IMM EXPLAINED AND GIVEN. REFERRAL SENT TO [facility] SPOKE WITH ADAN. CM TO FOLLOW AND ASSIST WITH DC PLANNING DCP- Discharge Planning Updated by [email or web address]: Nia Carlos on 08/09/18 1:[address] Patient Name: FRANCIS ABREU Admission Status: Urgent Accout number: [id number] Admission Date: 08-07-2018 : 1940 Admission Diagnosis: Attending: TAB SALAZAR Current LOS: 2 Anticipated DC Date: Planned Disposition: Inpatient Rehab Primary Insurance: [employer] MEDICARE PPO or HMO Discharge Planning Comments: CM met with patient to assess discharge planning needs. Patient lives home alone where she is independent with her care. She stated that he son was flying into town today from [place] and will stay a week, but then he will go back to his home. Patient stated that she does not feel like she can go home in the state that she is in and would like to go to our inpatient rehab. She will need preauth. She does not have any DME at home. So at DC she will need a walker and BSC. CM will continue to follow and assist with DC planning Tobacco Roller: Nia Carlos DCPIA - Discharge Planning Initial Assessment Updated by [email or web address]: Nia Carlos on 08/09/18 2:10 pm * Is the patient Alert and Oriented? Yes * How many steps to enter\exit or inside your home? * PCP JAMES * Pharmacy [facility] [address] * Preadmission Environment Home Alone * ADLs Independent * List name and contact numbers for known caregivers / representatives who currently or will assist patient after discharge: ROSHNI (SON) [phone] * Verbal permission to speak to the caregivers and representatives has been obtained from the patient. N/A * Community resources currently utilized None * Additional services required to return to the preadmission environment? Yes * Can the patient safely return to the preadmission environment? No * Has this patient been hospitalized within the prior 30 days at any hospital? No Coverage Notice Reviewer: [id number] - Nia Carlos Notice Issued Date-Time: 08/14/2018 14:51 Notice Type: IM Discharge Notice Notice Delivered To: Patient Relationship to Patient: Rake Operator Name: Delivery Method: HAND - Hand Delivered Carrie Days: Prior Verbal Notification: Recipient Understood Notice: Yes Recipient Signature: Yes Med Rec Note Co-signed by Attending: Coverage Notice Comment: Last DP export: 08/15/18 2:54 p Patient Name: FRANCIS ABREU Page [id number] at 1446 All edits/amendments must be made on the electronic document DICTATION DATE: 08/17/18 1446 TEST DESIGN ENGINEER: EVARISTO 08/17/18 1446 RPT#: [id number] DC DATE:08/15/18 STATUS: DIS IN [facility] [address] [place] [address] END OF REPORT
== END 2018-08-15 17:39 | DRG 470 ==
LOC: D.SDCHOLD 08-07 09:00 → D.MS 08-07 11:50 → D.SDCHOLD 08-07 13:30 → D.MS 08-07 19:50
PROVIDERS: Family Medicine; ADMIT Orthopaedic Surgery
PROC: 0SRB0JZ Replacement of Left Hip Joint with Synthetic Substitute, Open Approach (ICD-10-PCS; principal; 2018-08-07 14:00)
DX: M16.12 Unilateral primary osteoarthritis, left hip (principal); N39.0 Urinary tract infection, site not specified; D62 Acute posthemorrhagic anemia; Z86.73 Personal history of transient ischemic attack (TIA), and cerebral infarction without residual deficits; E03.9 Hypothyroidism, unspecified; J45.909 Unspecified asthma, uncomplicated; Z87.891 Personal history of nicotine dependence; G47.00 Insomnia, unspecified; R91.1 Solitary pulmonary nodule

== ENCOUNTER 2018-10-12 11:19 | Emergency (ER) | payer MEDICARE, OTHER ==
[~2018-10-12] VITALS: Ht 157.5 cm; Wt 68.2 kg
[~2018-10-12 11:19] MED LIST changes: +ELIQUIS2.5 MG PO; +HYDROCODON-ACE1 EAC7 PO; +KEFLEX500 MG PO
[2018-10-12 11:23] VITALS: Ht 157.5 cm; Wt 68.2 kg
[2018-10-12] MEDS ORDERED: HYDROCODON-ACE1 EA10 PO (12:43)
[2018-10-12] MEDS ORDERED: IBUPROFEN800 MG PO (12:43)
[2018-10-12 13:27] VITALS: BP 148/67
== END 2018-10-12 13:28 | disposition home or self-care (01) ==
LOC: D.ER 11:19
DX: M25.552 Pain in left hip (principal)

== ENCOUNTER → 2020-04-06 10:07 | Outpatient (CLI) | payer MEDICARE, OTHER ==
[2019-08-17 13:52] VITALS: BMI 27.5
[~2020-04-06 10:07] MED LIST changes: +HYDROCODON-ACE1 EA10 PO; +IBUPROFEN800 MG PO; +PHENAZOPYRIDIN200 MG PO
== END | disposition home or self-care (01) ==
LOC: D.MRI 10:07
PROVIDERS: ATTEND Orthopaedic Surgery
DX: M54.5 Low back pain (principal)